=== PATIENT | female | born 1985 | race Caucasian/White ===

== ENCOUNTER → 2019-11-02 15:20 | Observation (INO) ==
[2019-11-02 14:01] VITALS: BP 133/83
[2019-11-02 14:13] LABS: Hematocrit 38.4 % (35.3-44.9); Hemoglobin 11.9 g/dL (11.5-15.4)
[~2019-11-02 15:20] MED LIST: Ringers Solution, Lactated 1,000 ML IVC ONE; Ringers Solution, Lactated 1,000 ML ONE
== END | disposition home or self-care (01) ==
LOC: 1NENULAB
PROVIDERS: ADMIT Obstetrics & Gynecology; ATTEND Obstetrics & Gynecology